=== PATIENT | male | born 1965 | race African-American/Black ===

== ENCOUNTER 2018-03-28 14:45 | Inpatient (IN) | payer BC ==
[~2018-03-28] VITALS: Ht 172.7 cm; Wt 77.4 kg
[2018-03-28 21:23] VITALS: BP 134/72; PULSE 70; RESP 18
[2018-03-28 21:28] VITALS: PULSE 77
[2018-03-28 21:30] VITALS: Ht 172.7 cm; Wt 77.4 kg
[2018-03-28] MEDS ORDERED: GLUCAGON 1 MG INJ IM PRN (22:30)
[2018-03-28] MEDS ORDERED: GLUCOSE GEL 15 GRAM TUBE BUCCAL PRN (22:30)
[2018-03-28] MEDS ORDERED: ACETAMINOPHEN 325 MG TAB PO PRN (22:30)
[2018-03-28] MEDS ORDERED: BISACODYL (EC) 5 MG TAB PO PRN (22:30)
[2018-03-28] MEDS ORDERED: GLUCOSE GEL 15 GRAM TUBE PO PRN ×2 (22:30)
[2018-03-28] MEDS ORDERED: DEXTROSE 50% 50 ML SYRINGE IV PRN ×2 (22:30)
[2018-03-28] MEDS ORDERED: NACL 0.9% 3 ML SYG IV SCH (22:30)
[2018-03-28] MEDS ORDERED: DOCUSATE SODIUM 100 MG CAP PO PRN (22:30)
[2018-03-28] MEDS: DEXTROSE 5%-0.45% NACL 1,000 ML IV SCH (22:38)
[2018-03-28] MEDS ORDERED: HYDROCORTISONE 2.5% 28.35 GM OINT TOP SCH (23:00)
--- NOTE | 2018-03-28 23:57 | HP ---
Date/Time of Note Date/Time of Note DATE: 03/28/18 TIME: 23:57 Assessment/Plan VTE Prophylaxis SCD applied (from Ns): Yes Pharmacological prophylaxis: NA/contraindicated Pharm contraindication: low risk/ambulating Assessment/Plan Hospital Course This is a 52-year-old male being admitted to the telemetry floor for: #1 acute vs acute on chronic encephalopathy: Likely secondary to hypoglycemia as well as illicit drug use. Patient apparently was found to have a low blood sugars however an exact number was not able to be found in the chart. This likely could be secondary to poor p.o. intake, drug use as well as excessive alcohol use. At the current time we will check serial glucose levels, insulin sliding scale, hypoglycemic protocol, D5 half-normal saline at 80 cc an hour. Encourage diet. We will check hemoglobin A1c, lipid panel, TSH, will check CT of the head without contrast #2 hypoglycemia: We will check hemoglobin A 1C, further management as per #1. #3 diffuse skin lesions/rash: Suspect scabies. Will give a treatment of permethrin 5%. #4 illicit drug use: Patient did have a positive cocaine screen at the transfer facility, will check a blood alcohol level as well. Patient does report heavy alcohol use. Ativan as needed for withdrawal symptoms, banana bag x1, daily thiamine folate. Monitor for further withdrawal symptoms patient may need Librium. #5 elevated CK: Patient did have an elevated CK level of approximately 499 likely secondary to patient's heavy alcohol use and possibly being down for a prolonged period. At the current time we will repeat a CK level, IV fluid hydration. #6 Normocytic anemia: We will check iron stores #7 DVT GI prophylaxis: SCDs, no GI prophylaxis indicated Further treatment strategy will be implemented as per the clinical course Result Diagram: 03/28/18222903/28/182229 Results 24hrs Laboratory Tests Test 03/28/18 22:30 03/28/18 22:46 White Blood Count 7.9 Red Blood Count 4.32 L Hemoglobin 11.6 L Hematocrit 35.3 L Mean Corpuscular Volume 81.7 L Mean Corpuscular Hemoglobin 26.9 L Mean Corpuscular Hemoglobin Concent 32.9 Red Cell Distribution Width 13.9 Platelet Count 332 Mean Platelet Volume 9.2 Immature Granulocytes % 0.300 Neutrophils % 60.2 Lymphocytes % 16.8 Monocytes % 7.6 Eosinophils % 14.5 H Basophils % 0.6 Nucleated Red Blood Cells % 0.0 Immature Granulocytes # 0.020 Neutrophils # 4.7 Lymphocytes # 1.3 Monocytes # 0.6 Eosinophils # 1.1 H Basophils # 0.1 Nucleated Red Blood Cells # 0.0 Sodium Level 137 Potassium Level 4.0 Chloride Level 106 Carbon Dioxide Level 27 Anion Gap 4 L Blood Urea Nitrogen 13 Creatinine 0.80 Est Glomerular Filtrat Rate mL/min > 60 Glucose Level 99 Calcium Level 8.8 Magnesium Level 2.0 Total Bilirubin 0.1 L Direct Bilirubin 0.00 Indirect Bilirubin 0.1 Aspartate Amino Transf (AST/SGOT) 21 Alanine Aminotransferase (ALT/SGPT) 15 Alkaline Phosphatase 104 Total Protein 6.6 Albumin 3.5 Globulin 3.10 Albumin/Globulin Ratio 1.12 Ethyl Alcohol Level Pending Bedside Glucose 95 HPI/ROS Admit Date/Time Admit Date/Time Mar 28, 2018 at 20:43 Hx of Present Illness Chief complaint: Altered level consciousness The following history was obtained from the transfer documentation, patient himself was not able to provide a great history as he is a poor historian. This is a 52-year-old homeless male with no past medical history who presented to [facility] with altered level of consciousness and low sugar. Patient was subsequently transferred to [facility] secondary to insurance purposes. Patient himself does not recall how he ended up at [facility]. He does report that he has used cocaine recently and he also reports that he has drank recently as well. He does report that he drinks quite often. He denies any chest pain or shortness of breath. He does report that he has been itching all over for quite some time as he does have an extensive rash everywhere. He is homeless. Pertinent laboratory findings from transfer facility: CBC hemoglobin 12.8/hematocrit 39.7/platelets 292/white blood cell count 10.3 Sodium 138/potassium 3.9/chloride 106/CO2 28/BUN 18/creatinine 0.8 blood alcohol level less than 5 EKG normal sinus rhythm heart rate 70 bpm, no acute ST or T wave abnormalities concerning for acute ischemia Urinalysis: Negative for nitrates negative for leukoesterase CPK 499 Troponin less than 0.06 Urine drug screen positive for cocaine Allergies: NKDA Medications: None ROS Const: As per HPI Eyes : No pain discharge or redness or change in visual acuity ENT: No pain, sore throat, congestion, congestion, dysphagia or discharge Respiratory: No shortness of breath, cough, sputum, wheezing, or pleuritic pain Cardiovascular: No chest pain, palpitation, PND, or edema GI : no change in appetite, abdominal pain, nausea, vomiting, diarrhea, constipation, or change in the color his stool Genitourinary: No dysuria, hematuria, flank pain , discharge or CVA tenderness Musculoskeletal: No joint pain, back pain, neck pain, restricted range of motion in neck or joints Skin: As per HPI Neuro: No headache, dizziness, syncope, seizure, focal weakness Endocrine: No polyuria, polydipsia, temperature intolerance Psych: No hallucination, depression, anxiety or suicidal ideation PMH/Family/Social Past Medical History Previous eye trauma to the left eye, depression, anxiety, schizophrenia Medications Current Medications Dextrose/Sodium Chloride 1,000 ml @ 80 mls/hr [id number] IV Last administered on 03/28/18at 22:38; Admin Dose 80 MLS/HR; Start 03/28/18 at 22:12 IV Flush (NS 3 ml) 3 ml PER PROTOCOL IV ; Start 03/28/18 at 22:30 Aspirin (Aspirin) 81 mg DAILY PO ; Start 03/29/18 at 09:00 Acetaminophen (Tylenol Tab) 650 mg Q6H PRN PO PAIN LEVEL 1-3 OR FEVER; Start 03/28/18 at 22:30 Docusate Sodium (Colace) 100 mg Q12H PRN PO CONSTIPATION; Start 03/28/18 at 22:30 Bisacodyl (Dulcolax) 5 mg DAILY PRN PO CONSTIPATION; Start 03/28/18 at 22:30 Diagnostic Test (Pha) (Accu-Chek) 1 ea 02 XX ; Start 03/29/18 at 02:00 Insulin Aspart (Novolog Insulin Pen) NOVOLOG *MILD* ALGORI... Q4 SC ; Start 03/29/18 at 01:00 Miscellaneous Information 1 ea NOTE XX ; Start 03/28/18 at 22:30 Glucose (Glutose) 15 gm Q15M PRN PO DECREASED GLUCOSE; Start 03/28/18 at 22:30 Glucose (Glutose) 22.5 gm Q15M PRN PO DECREASED GLUCOSE; Start 03/28/18 at 22:30 Dextrose (D50w Syringe) 25 ml Q15M PRN IV DECREASED GLUCOSE; Start 03/28/18 at 22:30 Dextrose (D50w Syringe) 50 ml Q15M PRN IV DECREASED GLUCOSE; Start 03/28/18 at 22:30 Glucagon (Glucagen) 1 mg Q15M PRN IM DECREASED GLUCOSE; Start 03/28/18 at 22:30 Glucose (Glutose) 15 gm Q15M PRN BUCCAL DECREASED GLUCOSE; Start 03/28/18 at 22:30 Hydrocortisone (Hydrocortisone 2.5% Oint) 1 applic BID TOP ; Start 03/28/18 at 23:00 Coded Allergies: No Known Allergy (Unverified , 03/28/18) Past Surgical History Past Surgical Hx: no surgical history Family History Significant Family History: no pertinent family hx Social History Alcohol Use: heavy Smoking Status: Current every day smoker Drug Use: cocaine, marijuana Exam/Review of Systems Vital Signs Vitals Vital Signs Date Temp Pulse Resp B/P (MAP) Pulse Ox O2 O2 Flow FiO2 Time Delivery Rate 03/28/18 77 21:28 03/28/18 99.6 18 134/72 96 21:23 (92) Exam Exam General: Patient is currently lying in bed and excessively itching all over his body, denies any chest pain or shortness of breath HEENT: Atraumatic, normocephalic. The pupils are equal, round and reactive. Ext raocular motor are intact Neck: Supple with full range of motion. No rigidity or meningismus Chest: Nontender Lungs: Clear to auscultation bilaterally no crackles rales or wheezing Heart: Normal S1-S2, Regular rhythm and rate. No murmur, S3, or S4 Abdomen: Soft , nontender, nondistended , bowel sounds are present. No guarding no rebound tenderness , No masses or organomegaly. No costovertebral temporal angle mass Extremities: No edema no cyanosis, please see skin Skin: Diffuse maculopapular excoriated circular lesions of the bilateral arms bilateral legs as well as the trunk Neurologic: Normal mental status, speech normal, cranial nerves II through XII are intact, motor and sensory are intact, no focal weakness he is alert GREG WOLFE Mar 28, 2018 23:57
[2018-03-29] VITALS (8 sets, daily range): BP systolic 108–133; BP diastolic 55–82; PULSE 62–72; RESP 16–18
[2018-03-29] MEDS: INSULIN ASPART [NOVOLOG] 3 ML PEN SC SCH ×6 (01:00→20:46)
[2018-03-29] MEDS ORDERED: ACCU-CHEK XX SCH (02:00)
[2018-03-29] MEDS ORDERED: PERMETHRIN 5% 60 GM CR TOP ONE ×2 (06:30→18:00)
[2018-03-29] MEDS ORDERED: LORAZEPAM 4 MG/ML VIAL IV PRN (06:30)
[2018-03-29] MEDS ORDERED: DIPHENHYDRAMINE 25 MG CAP PO ONE (06:30)
[2018-03-29] MEDS ORDERED: MULTIVITAMINS 10 ML, THIAMINE 100 MG, FOLIC ACID 1 MG in SOD CHLORIDE 0.9% 1,000 ML IVPB SCH (08:00)
[2018-03-29] MEDS: ASPIRIN 81 MG TAB PO SCH (08:36)
[2018-03-29] MEDS: FOLIC ACID 1 MG TAB PO SCH (08:36)
[2018-03-29] MEDS: THIAMINE 200 MG INJ IM SCH (09:53)
[2018-03-29] MEDS: DEXTROSE 5%-0.45% NACL 1,000 ML IV SCH (10:42)
[2018-03-29] MEDS ORDERED: GABA100C14 PO (12:35)
[2018-03-29] MEDS ORDERED: OLAN10TA7 PO (12:35)
[2018-03-29] MEDS ORDERED: METF-849 PO (12:35)
[2018-03-29] MEDS ORDERED: BEN25 PO (12:35)
--- NOTE | 2018-03-29 14:56 | PN ---
Date/Time of Note Date/Time of Note DATE: 03/29/18 TIME: 14:55 Assessment/Plan VTE Prophylaxis Risk score (from Ns)>0 risk: 1 SCD applied (from Nsg): Yes Pharmacological prophylaxis: heparin Lines/Catheters IV Catheter Type (from Nrsg): Peripheral IV Urinary Cath still in place: No Assessment/Plan Hospital Course 52 yo male wtih PSA brought in for encephlopathy. Appears to have baseline cognitive impairment - Need to obtain collateral - Permethrin for possible scabies - dc fluids Result Diagram: 03/29/18 0717 03/29/18 0717 Results 24hrs Laboratory Tests Test 03/28/18 22:30 03/28/18 22:46 03/29/18 02:11 03/29/18 03:13 White Blood Count 7.9 Red Blood Count 4.32 L Hemoglobin 11.6 L Hematocrit 35.3 L Mean Corpuscular Volume 81.7 L Mean Corpuscular 26.9 L Hemoglobin Mean Corpuscular 32.9 Hemoglobin Concent Red Cell Distribution 13.9 Width Platelet Count 332 Mean Platelet Volume 9.2 Immature Granulocytes % 0.300 Neutrophils % 60.2 Lymphocytes % 16.8 Monocytes % 7.6 Eosinophils % 14.5 H Basophils % 0.6 Nucleated Red Blood 0.0 Cells % Immature Granulocytes # 0.020 Neutrophils # 4.7 Lymphocytes # 1.3 Monocytes # 0.6 Eosinophils # 1.1 H Basophils # 0.1 Nucleated Red Blood 0.0 Cells # Sodium Level 137 Potassium Level 4.0 Chloride Level 106 Carbon Dioxide Level 27 Anion Gap 4 L Blood Urea Nitrogen 13 Creatinine 0.80 Est Glomerular Filtrat > 60 Rate mL/min Glucose Level 99 Calcium Level 8.8 Magnesium Level 2.0 Total Bilirubin 0.1 L Direct Bilirubin 0.00 Indirect Bilirubin 0.1 Aspartate Amino 21 Transf (AST/SGOT) Alanine 15 Aminotransferase (ALT/SG PT) Alkaline Phosphatase 104 Total Protein 6.6 Albumin 3.5 Globulin 3.10 Albumin/Globulin Ratio 1.12 Ethyl Alcohol Level < 10.0 H Bedside Glucose 95 93 Urine Color YELLOW Urine Clarity CLEAR Urine pH 5.0 Urine Specific [place] 1.014 Urine Ketones NEGATIVE Urine Nitrite NEGATIVE Urine Bilirubin NEGATIVE Urine Urobilinogen NEGATIVE Urine Leukocyte Esterase NEGATIVE Urine Hemoglobin NEGATIVE Urine Glucose NEGATIVE Urine Total Protein NEGATIVE Urine Opiates Screen Negative Urine Barbiturates Negative Urine Amphetamines Negative Screen Urine Benzodiazepines Negative Screen Urine Cocaine Screen Positive Urine Cannabinoids Negative Test 03/29/18 06:58 03/29/18 07:17 03/29/18 08:31 03/29/18 12:08 Bedside Glucose 117 100 102 White Blood Count 7.3 Red Blood Count 4.54 L Hemoglobin 12.1 L Hematocrit 37.1 L Mean Corpuscular Volume 81.7 L Mean Corpuscular 26.7 L Hemoglobin Mean Corpuscular 32.6 Hemoglobin Concent Red Cell Distribution 13.8 Width Platelet Count 344 Mean Platelet Volume 9.8 Immature Granulocytes % 0.400 Neutrophils % 62.2 Lymphocytes % 15.7 Monocytes % 8.4 Eosinophils % 12.7 H Basophils % 0.6 Nucleated Red Blood 0.0 Cells % Immature Granulocytes # 0.030 Neutrophils # 4.5 Lymphocytes # 1.1 Monocytes # 0.6 Eosinophils # 0.9 H Basophils # 0.0 Nucleated Red Blood 0.0 Cells # Sodium Level 141 Potassium Level Pending Chloride Level 105 Carbon Dioxide Level 29 Anion Gap 7 Blood Urea Nitrogen 12 Creatinine 0.81 Est Glomerular Filtrat > 60 Rate mL/min Glucose Level 97 Hemoglobin A1c 5.9 Calcium Level 9.2 Magnesium Level 2.0 Iron Level 40 Total Iron Binding 241 Capacity Percent Iron Saturation 17 L Ferritin 62.7 Total Bilirubin 0.1 L Direct Bilirubin 0.00 Indirect Bilirubin 0.1 Aspartate Amino 16 Transf (AST/SGOT) Alanine 21 Aminotransferase (ALT/SG PT) Alkaline Phosphatase 73 Creatine Kinase 231 H Total Protein 6.4 Albumin 3.3 Globulin 3.10 Albumin/Globulin Ratio 1.06 Triglycerides Level 73 Cholesterol Level 145 LDL Cholesterol, 50 Calculated HDL Cholesterol 80 H Cholesterol/HDL Ratio 1.8 Thyroid Stimulating 1.210 Hormone (TSH) Subjective 24 Hr Interval Summary Free Text/Dictation Appears comfortable Denies complaints Unable to provide history Exam/Review of Systems Vital Signs Vitals Vital Signs Date Temp Pulse Resp B/P (MAP) Pulse Ox O2 O2 Flow FiO2 Time Delivery Rate 03/29/18 64 13:05 03/29/18 98.9 16 130/71 97 11:52 (90) Intake and Output 03/28/18 03/28/18 03/29/18 1515:00 23:00 07:00 IntakeIntake Total 1540 ml BalanceBalance 1540 ml Medications Medications Current Medications Dextrose/Sodium Chloride 1,000 ml @ 80 mls/hr [id number] IV Last administered on 03/28/18at 22:38; Admin Dose 80 MLS/HR; Start 03/28/18 at 22:12 IV Flush (NS 3 ml) 3 ml PER PROTOCOL IV ; Start 03/28/18 at 22:30 Aspirin (Aspirin) 81 mg DAILY PO Last administered on 03/29/18at 08:36; Admin Dose 81 MG; Start 03/29/18 at 09:00 Acetaminophen (Tylenol Tab) 650 mg Q6H PRN PO PAIN LEVEL 1-3 OR FEVER; Start 03/28/18 at 22:30 Docusate Sodium (Colace) 100 mg Q12H PRN PO CONSTIPATION; Start 03/28/18 at 22:30 Bisacodyl (Dulcolax) 5 mg DAILY PRN PO CONSTIPATION; Start 03/28/18 at 22:30 Diagnostic Test (Pha) (Accu-Chek) 1 ea 02 XX ; Start 03/29/18 at 02:00 Insulin Aspart (Novolog Insulin Pen) NOVOLOG *MILD* ALGORI... Q4 SC ; Start 03/29/18 at 01:00 Miscellaneous Information 1 ea NOTE XX ; Start 03/28/18 at 22:30 Glucose (Glutose) 15 gm Q15M PRN PO DECREASED GLUCOSE; Start 03/28/18 at 22:30 Glucose (Glutose) 22.5 gm Q15M PRN PO DECREASED GLUCOSE; Start 03/28/18 at 22:30 Dextrose (D50w Syringe) 25 ml Q15M PRN IV DECREASED GLUCOSE; Start 03/28/18 at 22:30 Dextrose (D50w Syringe) 50 ml Q15M PRN IV DECREASED GLUCOSE; Start 03/28/18 at 22:30 Glucagon (Glucagen) 1 mg Q15M PRN IM DECREASED GLUCOSE; Start 03/28/18 at 22:30 Glucose (Glutose) 15 gm Q15M PRN BUCCAL DECREASED GLUCOSE; Start 03/28/18 at 22:30 Multivitamins 10 ml/Thiamine HCl 100 mg/Folic Acid 1 mg/Sodium Chloride 1,011.2 ml @ 125 mls/ hr DAILY@09 IVPB Last administered on 03/29/18at 09:53; Admin Dose 125 MLS/HR; Start 03/29/18 at 08:00; Stop 03/30/18 at 07:59 Thiamine HCl (Vitamin B1) 100 mg DAILY IM Last administered on 03/29/18at 09:53; Admin Dose 100 MG; Start 03/29/18 at 09:00; Stop 04/01/18 at 08:59 Lorazepam (Ativan) 1 mg Q4 PRN IV CONTROL WITHDRAWAL SYMPTOMS; Start 03/29/18 at 06:30 Folic Acid (Folic Acid) 1 mg DAILY PO Last administered on 03/29/18at 08:36; Admin Dose 1 MG; Start 03/29/18 at 09:00 Permethrin (Elimite 5% Cr) 1 applic ONCE ONCE TOP ; Start 03/29/18 at 18:00; Stop 03/29/18 at 18:01 ALVARO KYLE MD Mar 29, 2018 14:56
[2018-03-30] MEDS ORDERED: DIPHENHYDRAMINE 25 MG CAP PO ONE
[2018-03-30 01:41] VITALS: BP 118/72; PULSE 70; RESP 18
[2018-03-30] MEDS ORDERED: OLANZAPINE 5 MG TAB PO ONE (02:00)
[2018-03-30] MEDS: INSULIN ASPART [NOVOLOG] 3 ML PEN SC SCH ×2 (07:20→11:10)
[2018-03-30 07:53] VITALS: BP 95/57; PULSE 104; RESP 18
[2018-03-30] MEDS: FOLIC ACID 1 MG TAB PO SCH (09:00)
[2018-03-30] MEDS: THIAMINE 200 MG INJ IM SCH (09:00)
[2018-03-30] MEDS: ASPIRIN 81 MG TAB PO SCH (09:00)
[2018-03-30 14:00] VITALS: BP 106/67; PULSE 80; RESP 17
--- NOTE | 2018-03-30 15:13 | DS ---
Date/Time of Note Date/Time of Note DATE: 03/30/18 TIME: 15:12 Discharge Summary Admission/Discharge Info Admit Date/Time Mar 28, 2018 at 20:43 Discharge Date/Time Mar 30, 2018 at 14:57 Discharge Diagnosis Encephlopahty acute Patient Condition: Stable Hospital Course 52 yo male wtih PSA brought in for encephlopathy. on day one he was unable to p rovide a histoyr. Today he denied complaints and asked to be discharged. He was alert and oriented. Says he is [facility] to the [facility] Home Meds Reported Medications Olanzapine* (Zyprexa*) 10 Mg Tablet, 10 MG PO QHS, #30 TAB 03/29/18 Metformin* (Glucophage*) 500 Mg Tab, 500 MG PO BID WITH MEALS, #90 TAB 03/29/18 Gabapentin* (Gabapentin*) 100 Mg Capsule, 100 MG PO QHS, #90 CAP 03/29/18 Diphenhydramine Hcl* (Benadryl*) 25 Mg Cap, 25 MG PO Q4 for itching, CAP 03/29/18 Primary Care Provider Care Physician No Primary Pending Labs Laboratory Tests Test 03/29/18 16:47 03/29/18 20:22 03/30/18 08:58 03/30/18 12:52 Bedside 87 88 91 77 Glucose mg/dL (70-220) mg/dL (70-220) mg/dL (70-220) mg/dL (70-220) Test 03/30/18 14:38 Bedside 158 Glucose mg/dL (70-220) ALVARO KYLE MD Mar 30, 2018 15:13
[2018-03-30] MEDS ORDERED: OLANZAPINE 5 MG TAB PO SCH (21:00)
== END 2018-03-30 14:57 | disposition home or self-care (01) | DRG 72 ==
LOC: TEL 20:43 → MS1 03-29 21:10
PROVIDERS: ADMIT Internal Medicine; ATTEND Internal Medicine
DX: G93.40 Encephalopathy, unspecified (principal); E16.2 Hypoglycemia, unspecified; L98.8 Other specified disorders of the skin and subcutaneous tissue; D64.9 Anemia, unspecified
CPT/HCPCS: 70450; 71045; 80053; 80061; 80307; 81003; 82550; 82728; 82962; 83036; 83540; 83735; 84443; 85025; 87081; J1815; J3411; J7030; J7042